=== PATIENT | male | born 1970 | race Caucasian/White ===

== ENCOUNTER 2020-09-18 05:43 | Outpatient (CLI) | payer OTHER ==
[~2020-09-18] VITALS: Ht 177.8 cm; Wt 113.7 kg
[2020-09-21] MEDS ORDERED: HYDR-3817 PO (11:58)
== END 2020-09-18 15:09 | disposition home or self-care (01) ==
LOC: PREOP 05:43
PROVIDERS: ATTEND Surgery
DX: Z01.818 Encounter for other preprocedural examination (principal)

== ENCOUNTER 2020-09-21 11:54 | Day surgery (SDC) | payer OTHER ==
[~2020-09-21] VITALS: Ht 177 cm; Wt 113.7 kg
[2020-09-21] VITALS (11 sets, daily range): BP systolic 116–134; BP diastolic 52–80
--- NOTE | 2020-09-21 11:57 | Progress Note-Pre Operative ---
Pre-Operative Progress Note H&P Reviewed The H&P was reviewed, patient examined and no changes noted. Date Seen by Provider: Sep 21, 2020 Time Seen by Provider: 11:45 Date H&P Reviewed: Sep 21, 2020 Time H&P Reviewed: 11:45 Pre-Operative Diagnosis: sx reducible left inguinal and umbilical hernia AMA MORENO MD Sep 21, 2020 11:57
[2020-09-21] MEDS ORDERED: HYDR-3817 PO (11:58)
--- NOTE | 2020-09-21 11:59 | Discharge Inst-Surgical ---
D/C Lap Instructions-JOSH New, Converted, or Re-Newed RX: RX on Chart Follow Up Appt in 2 weeks Activity as tolerated No driving for 24 hours No driving while on pain medications Incentive Spirometry use every 2 hours while awake Regular Diet Symptoms to Report: Fever over 101 degree F, Nausea/Vomiting Infection Signs and Symptoms to report: Increased redness, Foul odor of wound, Increased drainage Bathing instructions: May shower Operative Area Clean/Dry; Keep incision clean/dry If any problems/questions: Contact your physician or go to Emergency Room AMA MORENO MD Sep 21, 2020 11:59
[2020-09-21] MEDS ORDERED: ONDANSETRON 4 MG/2 ML (SDV) Z0FRAN IVP PRN ×2 (12:00→16:15)
[2020-09-21] MEDS ORDERED: ACETAMINOPHEN 325 MG TABLET PO PRN (12:00)
[2020-09-21] MEDS ORDERED: morphine INJ 10 MG/ML 1ML (SYR OR VIAL) IVP PRN ×2 (12:00)
[2020-09-21] MEDS ORDERED: oxyCODONE/APAP 5/325MG (PERCOCET 5) TABLET PO PRN (12:00)
[2020-09-21] MEDS ORDERED: fentaNYL INJ 100 MCG/2 ML AMP ONE ×2 (12:40→14:56)
[2020-09-21] MEDS ORDERED: LIDOCAINE PF 2% 5 ML (XYLOCAINE) VIAL ONE (12:41)
[2020-09-21] MEDS ORDERED: MIDAZOLAM 2 MG/2 ML (VERSED) VIAL ONE (12:41)
[2020-09-21] MEDS ORDERED: proPOfol 200 MG/20 ML (DIPRIVAN) VIAL IV ONE (12:42)
[2020-09-21] MEDS ORDERED: ONDANSETRON 4 MG/2 ML (SDV) Z0FRAN ONE (12:43)
[2020-09-21] MEDS ORDERED: SEVOFLURANE (ULTANE) 15 ML INHAL SOLN ONE ×6 (12:43→15:32)
[2020-09-21] MEDS ORDERED: ROCURONIUM 10 MG/ML 5 ML SYRINGE IV ONE (12:43)
[2020-09-21] MEDS ORDERED: GLYCOPYRROLATE 0.2 MG/ML (ROBINUL) 2 ML VIAL ONE (12:43)
[2020-09-21] MEDS ORDERED: NEOSTIGMINE 3 MG/3 ML VIAL ONE (12:43)
[2020-09-21] MEDS ORDERED: NAPR-1070 PO (12:45)
[2020-09-21] MEDS ORDERED: GABA-486 PO (12:45)
[2020-09-21] MEDS ORDERED: NF-VITD400 PO (12:45)
[2020-09-21] MEDS ORDERED: METF-397 PO (12:45)
[2020-09-21] MEDS ORDERED: LIRA3PEN SQ (12:45)
[2020-09-21] MEDS ORDERED: DULO20CA19 PO (12:45)
[2020-09-21] MEDS ORDERED: TRZ50T PO (12:45)
[2020-09-21] MEDS ORDERED: EMPA10TA PO (12:45)
[2020-09-21] MEDS ORDERED: CLINDAMYCIN 600 MG/50 ML IVPB 50 ML IV ONE (12:45)
[2020-09-21] MEDS ORDERED: SIMV5TAB22 PO (12:45)
[2020-09-21] MEDS: LACTATED RINGERS 1,000 ML IV PRN ×2 (12:57→14:40)
[2020-09-21 13:04] LABS: BASOPHILS # (AUTO) 0.1 10^3/uL (0.0-0.1); BASOPHILS % (AUTO) 1 % (0-10); EOSINOPHILS # (AUTO) 0.2 10^3/uL (0.0-0.3); EOSINOPHILS % (AUTO) 3 % (0-10); HEMATOCRIT 45 % (40-54); HEMOGLOBIN 15.6 g/dL (13.3-17.7); LYMPHOCYTES # (AUTO) 1.8 10^3/uL (1.0-4.0); LYMPHOCYTES % (AUTO) 34 % (12-44); MEAN CORPUSCULAR HEMOGLOBIN 30 pg (25-34); MEAN CORPUSCULAR HGB CONC 35 g/dL (32-36); MEAN CORPUSCULAR VOLUME 87 fL (80-99); MEAN PLATELET VOLUME 9.6 fL (9.0-12.2); MONOCYTES # (AUTO) 0.5 10^3/uL (0.0-1.0); MONOCYTES % (AUTO) 9 % (0-12); NEUTROPHILS # (AUTO) 2.8 10^3/uL (1.8-7.8); NEUTROPHILS % (AUTO) 53 % (42-75); PLATELET COUNT 208 10^3/uL (130-400); WHITE BLOOD COUNT 5.2 10^3/uL (4.3-11.0)
[2020-09-21] MEDS ORDERED: LIDOCAINE/EPI 1%-1:200,000 (XYLOCAINE) 10 ML VIAL ONE (14:15)
--- NOTE | 2020-09-21 15:59 | Progress Note-Post Operative ---
Post-Operative Progess Note Surgeon (s)/[place] Machine Operator (s) Surgeon AMA MORENO MD [place] Machine Operator: jai patricio GRADER PATROL Pre-Operative Diagnosis sx reducible left inguinal and ventral abd inc hernia Post-Operative Diagnosis left indirect inguinal hernia ventral abd inc hernia Procedure & Operative Findings Date of Procedure 09/21/20 Procedure Performed/Findings laparoscopic right inguinal hernia repair with mesh. open ventral abd incisional hernia repair with mesh. Anesthesia Type get Estimated Blood Loss Estimated blood loss (mL): minimal Specimens/Packing Specimens Removed none AMA MORENO MD Sep 21, 2020 15:59
[2020-09-21] MEDS ORDERED: HYDROmorphone 2 MG/ML VIAL (DILAUDID) IV ONE (16:15)
--- NOTE | 2020-09-21 16:50 | Anesthesia-General Post-Op ---
General Patient Condition Mental Status/LOC: Same as Preop Cardiovascular: Satisfactory Nausea/Vomiting: Absent Respiratory: Satisfactory Pain: Controlled Complications: Absent Post Op Complications Complications None Follow Up Care/Instructions Patient Instructions None needed. Anesthesia/Patient Condition Patient Condition Patient is doing well, no complaints, stable vital signs, no apparent adverse anesthesia problems. No complications reported per nursing. D/C home [facility] Criteria: Yes LAKESHIA PABLO CRNA Sep 21, 2020 16:50
--- NOTE | 2020-09-22 00:08 | OPERATIVE REPORT ---
DATE OF SERVICE: 09/21/2020 ATTENDING PRIMARY CARE PHYSICIAN: Jaycee Arredondo at [place], [place]. PREOPERATIVE DIAGNOSES: 1. Symptomatic reducible left inguinal hernia. 2. Symptomatic reducible recurrent ventral abdominal incisional hernia. POSTOPERATIVE DIAGNOSES: 1. Symptomatic reducible left inguinal hernia. 2. Symptomatic reducible recurrent ventral abdominal incisional hernia. PROCEDURE: Laparoscopic left inguinal hernia repair with mesh, open recurrent umbilical hernia repair with mesh. SURGEON: Ama Moreno MD FLOOR PERSON: Reddy De La Fuente APRN. ANESTHESIA: General endotracheal. ESTIMATED BLOOD LOSS: Minimal. FINDINGS: Left indirect inguinal hernia, ventral abdominal incisional hernia with nothing within the hernia sac. DISPOSITION: The patient tolerated the procedure well. INDICATIONS: The patient is a 50-year-old male referred over to us for pain in the left inguinal region as well as a recurrent bulge in the umbilical region. Approximately 2 years ago, he had what sounded to be an incarcerated umbilical hernia and underwent repair by primary technique. A few months later, he did notice a recurrent bulge, which grew larger in size and became painful. He also underwent a CT scan, which did show a left inguinal hernia, which was tender to palpation; however, reducible. He is otherwise eating well and having normal bowel movements. DESCRIPTION OF PROCEDURE: The patient was brought to the operating room, laid supine on the table. After adequate IV pain and sedative medications and general endotracheal intubation, the abdomen was prepped and draped in standard surgical fashion. A 0.5% Marcaine with epinephrine was used to anesthetize overlying skin in the infraumbilical rim and a skin incision made using a 15 blade. A sharp towel clamp was used to retract the abdominal wall anteriorly and a Veress needle inserted with low opening pressure of 0 mmHg. The abdomen was then insufflated to 15 mmHg. The Veress needle removed and a 10 mm XL trocar placed followed by a 10 mm 45-degree angle laparoscope visualizing the peritoneal cavity. A left indirect inguinal hernia was identified. There was no right inguinal hernia component. Under direct visualization, we then proceeded to place two bilateral 5 mm ports under direct visualization after the skin and peritoneal lining were anesthetized using 0.5% Marcaine with epinephrine and transverse skin incision made using a 15 blade. The peritoneal lining was then opened using electrocautery towards the conjoined tendon and inguinal ligament laterally and medially until we reached the Landon's ligament. We then proceeded with inferior dissection encompassing the hernia sac as well as the cord lipoma. The cord and its surrounding contents identified and spared throughout the process. A medium size polypropylene mesh was then placed into the defect and tacked to Landon's ligament medially with AbsorbaTack and the inguinal ligament laterally. The peritoneal lining was then placed over the mesh and a few absorbable tacks placed to hold this in place with visualization of good hemostasis. We then proceeded with repair of the ventral abdominal incisional hernia. The skin incision was extended laterally using a 15 blade. The hernia sac was identified and completely dissected out using electrocautery as well as blunt dissection. The hernia sac was then excised using electrocautery and a large 8 cm round polypropylene mesh was placed into the defect and sutured transfascially to the mesh in a concentric manner using interrupted 0 Prolene sutures. Good hemostasis was observed. The subcutaneous tissue was then reapproximated using 3-0 Vicryl interrupted sutures. Skin was closed using 4-0 Monocryl running subcuticular suture. Wounds were then cleaned and covered with Dermabond. The patient tolerated the procedure well. He will be instructed to do no heavy lifting or exertion for the next six weeks. and wear both scrotal support and abdominal binder for at least the next 2 weeks. Job ID: [id number] DocumentID: [id number] Dictated Date: 09/21/2020 15:47:24 Application Manager Date: 09/22/2020 00:07:29 Dictated By: AMA MORENO MD MTDD
== END 2020-09-21 18:30 ==
LOC: SDC 11:54
PROVIDERS: ATTEND Surgery
DX: K40.90 Unilateral inguinal hernia, without obstruction or gangrene, not specified as recurrent (principal); K43.2 Incisional hernia without obstruction or gangrene; E11.40 Type 2 diabetes mellitus with diabetic neuropathy, unspecified; G47.33 Obstructive sleep apnea (adult) (pediatric); E78.00 Pure hypercholesterolemia, unspecified; F32.9 Major depressive disorder, single episode, unspecified; M19.90 Unspecified osteoarthritis, unspecified site; Z79.84 Long term (current) use of oral hypoglycemic drugs; Z88.0 Allergy status to penicillin; Z87.891 Personal history of nicotine dependence
CPT/HCPCS: 36415; 82962; 85025; 87081

== ENCOUNTER 2021-12-04 04:16 | Emergency (ER) | payer OTHER ==
[~2021-12-04] VITALS: Ht 177.8 cm; Wt 113.0 kg
[~2021-12-04 04:16] MED LIST: DULO20CA19 PO; EMPA10TA PO; GABA-486 PO; HYDR-3817 PO; LIRA3PEN SQ; METF-397 PO; NAPR-1070 PO; NF-VITD400 PO; SIMV5TAB22 PO; TRZ50T PO
[2021-12-04] MEDS ORDERED: inSUlin (REGULAR) HUMAN 1 UNIT/0.01 ML (CHARGE PER UNIT) SC STA (04:40)
--- NOTE | 2021-12-04 04:40 | ED General ---
General Stated Complaint: CHEST PAIN HIGH BLOOD SUGAR History of Present Illness Date Seen by Provider: Dec 04, 2021 Time Seen by Provider: 04:35 Initial Comments 51-year-old male with PMH of DM2/HTN/anxiety, is here with complaints of chest pain, anxiety,and elevated blood sugar. Patient had a home blood sugar level of over 500 and so patient decided to come to the ER.Denies SOB, diarrhea, nausea a nd vomiting, dysuria, dizziness. Allergies and Home Medications Allergies Coded Allergies: Penicillins (Verified Allergy, Unknown, Anaphylaxis, 09/21/20) Patient Home Medication List Home Medication List Reviewed: Yes Duloxetine HCl (Duloxetine HCl) Unknown Strength Capsule.dr, Unknown Dose PO, (Reported) Entered as Reported by: CHINYERE DEAN on 09/21/20 1245 Empagliflozin (Jardiance) Unknown Strength Tablet, Unknown Dose PO, (Reported) Entered as Reported by: CHINYERE DEAN on 09/21/20 1245 Gabapentin (Gabapentin) Unknown Strength Capsule, Unknown Dose PO Q8H, (Reported) Entered as Reported by: CHINYERE DEAN on 09/21/20 1245 Hydrocodone/Acetaminophen (Hydrocodone-Acetamin 7.5-325) 1 Each Tablet, 1 EACH PO Q4H Prescribed by: AMA MORENO on 09/21/20 1158 Liraglutide (Saxenda) Unknown Strength Pen.injctr, Unknown Dose SQ, (Reported) Entered as Reported by: CHINYERE DEAN on 09/21/20 1245 Metformin HCl (Metformin HCl) Unknown Strength Tablet, Unknown Dose PO, (Reported) Entered as Reported by: CHINYERE DEAN on 09/21/20 1245 Naproxen Sodium (Anaprox Ds) Unknown Strength Tablet, Unknown Dose PO BID, (Reported) Entered as Reported by: CHINYERE DEAN on 09/21/20 1245 Simvastatin (Simvastatin) Unknown Strength Tablet, Unknown Dose PO, (Reported) Entered as Reported by: CHINYERE DEAN on 09/21/20 1245 Trazodone HCl (Trazodone HCl) Unknown Strength Tablet, Unknown Dose PO, (Reported) Entered as Reported by: CHINYERE DEAN on 09/21/20 1245 Vitamin D (Vitamin D3) Unknown Strength Tablet, Unknown Dose PO, (Reported) Entered as Reported by: CHINYERE DEAN on 09/21/20 6827 Review of Systems Review of Systems Constitutional: chills, malaise EENTM: no symptoms reported Respiratory: no symptoms reported Cardiovascular: chest pain Gastrointestinal: LUQ, abdominal pain Genitourinary: no symptoms reported Musculoskeletal: no symptoms reported Skin: no symptoms reported Psychiatric/Neurological: Anxiety Hematologic/Lymphatic: No Symptoms Reported Immunological/Allergic: no symptoms reported Past Joshwvd-Ckhiur-Pnsula Hx Seasonal Allergies Seasonal Allergies: No Past Medical History Surgeries: Yes (neck fusion, R biceps repair, umb hernia) Respiratory: No Cardiac: No Neurological: Yes (vitamin d deficiency) Neuropathy Genitourinary: No Gastrointestinal: Yes (incisional hernia, ) Musculoskeletal: Yes Degenerate Disk Disease Endocrine: Yes Diabetes, Non-Insulin dep HEENT: No Cancer: No Psychosocial: No Integumentary: No Blood Disorders: No Physical Exam Vital Signs Vital Signs - First Documented 12/04/21 04:20 Temp 36.4 Pulse 79 Resp 16 B/P (MAP) 141/87 (105) Pulse Ox 99 O2 Delivery Room Air Capillary Refill : Height, Weight, BMI Height: '" Weight: lbs. oz. kg; 36.29 BMI Method: General Appearance: Anxious, Mild Distress HEENT: PERRL/EOMI, TMs Normal, Normal ENT Inspection Neck: Full Range of Motion, Normal Inspection, Non Tender Respiratory: Chest Non Tender, Lungs Clear, Normal Breath Sounds, No Accessory Muscle Use Cardiovascular: Regular Rate, Rhythm, No Edema Gastrointestinal: Normal Bowel Sounds, Non Tender, Soft Neurologic/Psychiatric: Alert, Oriented x3, No Motor/Sensory Deficits, Normal Mood/Affect Skin: Normal Color, Warm/Dry Lymphatic: No Adenopathy (dry mucous membranes) Progress/Results/Core Measures Suspected Sepsis SIRS Temperature: Pulse: Respiratory Rate: Laboratory Tests 12/04/21 04:40: White Blood Count 5.3 Blood Pressure / Mean: Laboratory Tests 12/04/21 04:40: Creatinine 0.84, Platelet Count 239, Total Bilirubin 0.4 Results/Orders Lab Results Laboratory Tests Test 12/04/21 04:27 12/04/21 04:40 12/04/21 06:07 12/04/21 06:12 Range/Units Glucometer 454 *H 282 H 70-110 MG/DL White Blood Count 5.3 4.3-11.0 10^3/uL Red Blood Count 4.94 4.30-5.52 10^6/uL Hemoglobin 14.8 13.3-17.7 g/dL Hematocrit 42 40-54 % Mean Corpuscular Volume 85 80-99 fL Mean Corpuscular Hemoglobin 30 25-34 pg Mean Corpuscular Hemoglobin Concent 35 32-36 g/dL Red Cell Distribution Width 12.5 10.0-14.5 % Platelet Count 239 130-400 10^3/uL Mean Platelet Volume 9.9 9.0-12.2 fL Immature Granulocyte % (Auto) 1 % Neutrophils (%) (Auto) 54 42-75 % Lymphocytes (%) (Auto) 34 12-44 % Monocytes (%) (Auto) 9 0-12 % Eosinophils (%) (Auto) 2 0-10 % Basophils (%) (Auto) 1 0-10 % Neutrophils # (Auto) 2.9 1.8-7.8 10^3/uL Lymphocytes # (Auto) 1.8 1.0-4.0 10^3/uL Monocytes # (Auto) 0.5 0.0-1.0 10^3/uL Eosinophils # (Auto) 0.1 0.0-0.3 10^3/uL Basophils # (Auto) 0.1 0.0-0.1 10^3/uL Immature Granulocyte # (Auto) 0.0 0.0-0.1 10^3/uL Sodium Level 133 L 135-145 MMOL/L Potassium Level 4.4 3.6-5.0 MMOL/L Chloride Level 100 98-107 MMOL/L Carbon Dioxide Level 22 21-32 MMOL/L Anion Gap 11 5-14 MMOL/L Blood Urea Nitrogen 16 7-18 MG/DL Creatinine 0.84 0.60-1.30 MG/DL Estimat Glomerular Filtration Rate 104 BUN/Creatinine Ratio 19 Glucose Level 501 *H 70-105 MG/DL Calcium Level 9.7 8.5-10.1 MG/DL Corrected Calcium 9.5 8.5-10.1 MG/DL Magnesium Level 2.0 1.6-2.4 MG/DL Total Bilirubin 0.4 0.1-1.0 MG/DL Aspartate Amino Transf (AST/SGOT) 19 5-34 U/L Alanine Aminotransferase (ALT/SGPT) 27 0-55 U/L Alkaline Phosphatase 104 40-136 U/L Troponin I < 0.30 <0.30 NG/ML Total Protein 6.3 L 6.4-8.2 GM/DL Albumin 4.2 3.2-4.5 GM/DL Urine Color YELLOW Urine Clarity CLEAR Urine pH 6.0 5-9 Urine Specific [place] <=1.005 1.016-1.022 Urine Protein NEGATIVE NEGATIVE Urine Glucose (UA) 3+ H NEGATIVE Urine Ketones NEGATIVE NEGATIVE Urine Nitrite NEGATIVE NEGATIVE Urine Bilirubin NEGATIVE NEGATIVE Urine Urobilinogen 0.2 < = 1.0 MG/DL Urine Leukocyte Esterase NEGATIVE NEGATIVE Urine RBC (Auto) NEGATIVE NEGATIVE Urine RBC NONE /HPF Urine WBC RARE /HPF Urine Squamous Epithelial Cells RARE /HPF Urine Crystals NONE /LPF Urine Bacteria NEGATIVE /HPF Urine Casts NONE /LPF Urine Mucus NEGATIVE /LPF Urine Culture Indicated NO Urine Opiates Screen NEGATIVE NEGATIVE Urine Oxycodone Screen NEGATIVE NEGATIVE Urine Methadone Screen NEGATIVE NEGATIVE Urine Propoxyphene Screen NEGATIVE NEGATIVE Urine Barbiturates Screen NEGATIVE NEGATIVE Ur Tricyclic Antidepressants Screen NEGATIVE NEGATIVE Urine Phencyclidine Screen NEGATIVE NEGATIVE Urine Amphetamines Screen NEGATIVE NEGATIVE Urine Methamphetamines Screen NEGATIVE NEGATIVE Urine Benzodiazepines Screen NEGATIVE NEGATIVE Urine Cocaine Screen NEGATIVE NEGATIVE Urine Cannabinoids Screen POSITIVE H NEGATIVE My Orders Orders - KARO ANDERSON MD Insulin (Regular) Human (Novolin R (Per (12/04/21 04:40) Ed Iv/Invasive Line Start (12/04/21 04:48) Ns Iv 1000 Ml (Sodium Chloride 0.9%) (12/04/21 05:00) Ct Abdomen/Pelvis W (12/04/21 04:49) Alcohol (12/04/21 04:49) Cbc With Automated Diff (12/04/21 04:49) Comprehensive Metabolic Panel (12/04/21 04:49) Drug Screen Stat (Urine) (12/04/21 04:49) Magnesium (12/04/21 04:49) Ua Culture If Indicated (12/04/21 04:49) Probnp Fs (12/04/21 04:49) Troponin I Fs (12/04/21 04:49) Chest 1 View Ap/Pa Only (12/04/21 04:49) Ekg Tracing (12/04/21 04:49) Aspirin Chewable Tablet (Baby Aspirin Ch (12/04/21 05:00) Lipase (12/04/21 04:52) Abg Ph (12/04/21 05:18) Accucheck Q1hr Q1HR (12/04/21 05:18) Check All Urine For Ketones (12/04/21 05:21) Iohexol Injection (Omnipaque 350 Mg/Ml 1 (12/04/21 05:30) Received Contrast (Hold Metformin- Contr (12/04/21 05:30) Sodium Chloride Flush (Catheter Flush Sy (12/04/21 05:30) Ns (Ivpb) (Sodium Chloride 0.9% Ivpb Bag (12/04/21 05:30) Ns Iv 1000 Ml (Sodium Chloride 0.9%) (12/04/21 05:21) Accucheck Daily ONCE (12/04/21 06:43) Medications Given in ED Current Medications Medications Dose Ordered Sig/[place] Route Start Time Stop Time Status Last Admin Dose Admin Aspirin 324 mg ONCE ONCE PO 12/04/21 05:00 12/04/21 05:01 DC 12/04/21 05:02 324 MG Iohexol 100 ml ONCE ONCE IV 12/04/21 05:30 12/04/21 05:31 DC 12/04/21 05:54 100 ML Sodium Chloride 10 ml NEEDED PRN IV 12/04/21 05:30 12/04/21 05:54 10 ML Sodium Chloride 100 ml ONCE ONCE IV 12/04/21 05:30 12/04/21 05:31 DC 12/04/21 05:54 100 ML Vital Signs/I&O 12/04/21 04:20 Temp 36.4 Pulse 79 Resp 16 B/P (MAP) 141/87 (105) Pulse Ox 99 O2 Delivery Room Air Capillary Refill : Progress Note : Progress Note 1. HYPERGLYCEMIA/ LUQ ABDOMINAL PAIN/ MARIJUANA ABUSE - CXR unremarkable - CT ABDOMEN: normal - Labs unremarkable - Machine broken so unable to do a s. ETOH and VBG/ pH panel, and lipase level - s.ETOH - UA: no infection, negative ketones - UDS: marijuana positive - Regular insulin 5 units - NS IVF bolus and then continuos - Blood sugar went from 500 to 282 to 277 -The patient was seen in the ED, and treated appropriately to presentation at a specific point in time. Patient is informed that there is a possibility that disease and illness can evolve and change in acuity rapidly or slowly after patient is discharged from the ER. Precautionary advice given to the patient for immediate return to ER if symptoms worsen or do not resolve, and to seek emergency care sooner rather than later. Pt also advised on the importance of PCP follow up and compliance with management and follow up plan with PCP and/or specialist, as this is part of the management plan. Pt verbally expressed understanding. 2. CHEST PAIN: ACS RULE OUT - Troponin - EKG: non-ischemic - ASA 324 mg STAT ECG Initial ECG Impression Date: Dec 04, 2021 Initial ECG Impression Time: 04:24 Initial ECG Rate: 76 Initial ECG Rhythm: Normal Sinus Initial ECG Intervals: Normal Initial ECG Impression: Normal Diagnostic Imaging Diagonstic Imaging: Xray, CT Plain Films/CT/US/NM/MRI: chest, abdomen Comments [facility] [place] [place], [place] NAME: [facility] REC#: [id number] PT STATUS: REG ER : 1970 PHYSICIAN: KARO ANDERSON MD ADMIT DATE: 12/04/21/ER FS Draft Date of Exam:12/04/21 CT ABDOMEN/PELVIS W EXAMINATION: CT abdomen and pelvis with intravenous contrast. TECHNIQUE: Multiple contiguous axial images were obtained through the abdomen and pelvis after the uneventful administration of intravenous contrast. All CT scans use one or more of the following dose optimizing techniques: automated exposure control, MA and/or KvP adjustment based on patient size and exam type or iterative reconstruction. HISTORY: Left upper quadrant pain. Epigastric pain. COMPARISON: None available. FINDINGS: The heart is unremarkable. The included lung bases are clear. The liver, spleen, pancreas, adrenal glands, and kidneys have a normal appearance. The gallbladder is nondistended. The portal vein is patent. Mildly prominent retroperitoneal lymph nodes are noted. The bowel loops are nondilated. The appendix is visualized in the right lower quadrant and has a normal appearance. There is no free fluid or free air. No acute osseous abnormalities. The urinary bladder is mildly distended. Nonspecific mildly prominent lymph node is visualized along the right external iliac chain measuring 0.9 cm. IMPRESSION: 1. Nonspecific mildly prominent retroperitoneal and right inguinal lymph nodes, likely reactive. 2. No bowel obstruction. No free fluid or free air in the abdomen and pelvis. Dictated on workstation # [id number] Dict: 12/04/21 0607 Trans: 12/04/21 0611 [facility] [id number] Interpreted by: KARI CALDERON DO Electronically signed by: [facility] [place], [place] NAME: [facility] REC#: [id number] PT STATUS: REG ER : 1970 PHYSICIAN: KARO ANDERSON MD ADMIT DATE: 12/04/21/ER FS Signed Date of Exam:12/04/21 CHEST 1 VIEW AP/PA ONLY EXAMINATION: Chest 1 view HISTORY: Chest pain. COMPARISON: None available. FINDINGS: The lung volumes are normal. No focal consolidation is seen. No large pleural effusion or pneumothorax is seen. The cardiomediastinal silhouette is normal in size and contour. No acute osseous abnormality is seen. IMPRESSION: 1. No acute pleuroparenchymal process. Dictated by: Dictated on workstation # [id number] Dict: 12/04/21 0549 Trans: 12/04/21 0554 [id number] Interpreted by: KARI CALDERON DO Electronically signed by: KARI CALDERON DO 12/04/21 0554 Departure Impression Primary Impression: Hyperglycemia without ketosis Additional Impressions: Ruled out for myocardial infarction Marijuana abuse Disposition: 01 HOME, SELF-CARE Condition: Improved Departure-Patient Inst. Referrals: NO,LOCAL PHYSICIAN (PCP) Primary Care Physician Patient Instructions: Marijuana Use and Addiction, Heart Healthy Diet, How to Prevent High Blood Sugar Emergencies in Diabetes, High Blood Sugar, Adult ED Add. Discharge Instructions: - Heart healthy diet advised - Adequate hydration - Follow up with PCP in the next 3 to 7 days - Return to ER if symptoms worsen - Stop using marijuana KARO ANDERSON MD Dec 04, 2021 04:40
[2021-12-04] MEDS ORDERED: ASPIRIN 81 MG CHEW (CHILDREN'S ASA) PO ONE (05:00)
[2021-12-04] MEDS ORDERED: NS IV 1000 ML 1,000 ML IV SCH (05:00)
[2021-12-04 05:02] LABS: BASOPHILS # (AUTO) 0.1 10^3/uL (0.0-0.1); BASOPHILS % (AUTO) 1 % (0-10); EOSINOPHILS # (AUTO) 0.1 10^3/uL (0.0-0.3); EOSINOPHILS % (AUTO) 2 % (0-10); HEMATOCRIT 42 % (40-54); HEMOGLOBIN 14.8 g/dL (13.3-17.7); LYMPHOCYTES # (AUTO) 1.8 10^3/uL (1.0-4.0); LYMPHOCYTES % (AUTO) 34 % (12-44); MEAN CORPUSCULAR HEMOGLOBIN 30 pg (25-34); MEAN CORPUSCULAR HGB CONC 35 g/dL (32-36); MEAN CORPUSCULAR VOLUME 85 fL (80-99); MEAN PLATELET VOLUME 9.9 fL (9.0-12.2); MONOCYTES # (AUTO) 0.5 10^3/uL (0.0-1.0); MONOCYTES % (AUTO) 9 % (0-12); NEUTROPHILS # (AUTO) 2.9 10^3/uL (1.8-7.8); NEUTROPHILS % (AUTO) 54 % (42-75); PLATELET COUNT 239 10^3/uL (130-400); WHITE BLOOD COUNT 5.3 10^3/uL (4.3-11.0)
[2021-12-04] MEDS ORDERED: NS IV 1000 ML 1,000 ML IV STA (05:21)
[2021-12-04 05:28] LABS: BUN/CREATININE RATIO 19; CARBON DIOXIDE 22 MMOL/L (21-32); CHLORIDE 100 MMOL/L (98-107); CREATININE SERUM 0.84 MG/DL (0.60-1.30); GFR ESTIMATED 104; POTASSIUM 4.4 MMOL/L (3.6-5.0); SODIUM 133 MMOL/L (135-145)
[2021-12-04 05:30] LABS: CALCIUM 9.7 MG/DL (8.5-10.1); GLUCOSE 501 MG/DL (70-105)
[2021-12-04] MEDS ORDERED: NS 100 ML (IVPB) BAG IV ONE (05:30)
[2021-12-04] MEDS ORDERED: CATHETER FLUSH 10 ML SYR IV PRN (05:30)
[2021-12-04] MEDS ORDERED: IOHEXOL 350 MG/ML 100 ML (OMNIPAQUE 350) VIAL IV ONE (05:30)
[2021-12-04] MEDS ORDERED: HOLD METFORMIN - RECEIVED CONTRAST 20 ML VIAL IV SCH (05:30)
[2021-12-04 05:31] LABS: ALANINE AMINOTRANSFERASE 27 U/L (0-55); ALBUMIN 4.2 GM/DL (3.2-4.5); ALKALINE PHOSPHATASE 104 U/L (40-136); BILIRUBIN,TOTAL 0.4 MG/DL (0.1-1.0); TOTAL PROTEIN 6.3 GM/DL (6.4-8.2)
--- NOTE | 2021-12-04 05:53 | Diagnostic Imaging Report ---
EXAMINATION: Chest 1 view HISTORY: Chest pain. COMPARISON: None available. FINDINGS: The lung volumes are normal. No focal consolidation is seen. No large pleural effusion or pneumothorax is seen. The cardiomediastinal silhouette is normal in size and contour. No acute osseous abnormality is seen. IMPRESSION: 1. No acute pleuroparenchymal process. Dictated by: Dictated on workstation # [id number]
--- NOTE | 2021-12-04 06:12 | Diagnostic Imaging Report ---
EXAMINATION: CT abdomen and pelvis with intravenous contrast. TECHNIQUE: Multiple contiguous axial images were obtained through the abdomen and pelvis after the uneventful administration of intravenous contrast. All CT scans use one or more of the following dose optimizing techniques: automated exposure control, MA and/or KvP adjustment based on patient size and exam type or iterative reconstruction. HISTORY: Left upper quadrant pain. Epigastric pain. COMPARISON: None available. FINDINGS: The heart is unremarkable. The included lung bases are clear. The liver, spleen, pancreas, adrenal glands, and kidneys have a normal appearance. The gallbladder is nondistended. The portal vein is patent. Mildly prominent retroperitoneal lymph nodes are noted. The bowel loops are nondilated. The appendix is visualized in the right lower quadrant and has a normal appearance. There is no free fluid or free air. No acute osseous abnormalities. The urinary bladder is mildly distended. Nonspecific mildly prominent lymph node is visualized along the right external iliac chain measuring 0.9 cm. IMPRESSION: 1. Nonspecific mildly prominent retroperitoneal and right inguinal lymph nodes, likely reactive. 2. No bowel obstruction. No free fluid or free air in the abdomen and pelvis. Dictated by: Dictated on workstation # [id number]
[2021-12-04 06:16] LABS: BILIRUBIN,URINE NEGATIVE (NEGATIVE); CLARITY,URINE CLEAR; COLOR,URINE YELLOW; GLUCOSE, URINE (UA) 3+ (NEGATIVE); KETONES,URINE NEGATIVE (NEGATIVE); LEUKOCYTE ESTERASE ,URINE NEGATIVE (NEGATIVE); NITRITE,URINE NEGATIVE (NEGATIVE); PROTEIN,URINE NEGATIVE (NEGATIVE)
[2021-12-04 06:23] LABS: BACTERIA,URINE NEGATIVE /HPF; SQUAMOUS EPITHELIAL CELL,UR RARE /HPF; WBC,URINE RARE /HPF
[2021-12-04 06:26] LABS: AMPHETAMINE SCREEN, URINE NEGATIVE (NEGATIVE); BARBITURATE SCREEN URINE NEGATIVE (NEGATIVE); BENZODIAZEPINES SCREEN URINE NEGATIVE (NEGATIVE); CANNABINOID SCREEN, URINE POSITIVE (NEGATIVE); COCAINE SCREEN URINE NEGATIVE (NEGATIVE); METHADONE STAT NEGATIVE (NEGATIVE); OPIATE SCREEN URINE NEGATIVE (NEGATIVE); OXYCODONE STAT NEGATIVE (NEGATIVE); PROPOXYPHENE STAT NEGATIVE (NEGATIVE); TRICYCLIC ANTIDEPRESSANTS SCRE NEGATIVE (NEGATIVE)
[2021-12-04 06:55] VITALS: BP 140/75
== END 2021-12-04 06:55 | disposition home or self-care (01) ==
LOC: EDUNIT# 04:16 → ER FS 04:19
DX: E11.65 Type 2 diabetes mellitus with hyperglycemia (principal); E11.40 Type 2 diabetes mellitus with diabetic neuropathy, unspecified; F12.10 Cannabis abuse, uncomplicated; Z79.4 Long term (current) use of insulin
CPT/HCPCS: 36415; 71045; 74177; 80053; 80306; 80320; 81000; 82947; 83690; 83735; 83880; 84484; 85025; 93005

== ENCOUNTER 2022-01-04 21:22 | Emergency (ER) | payer OTHER ==
[2022-01-04] MEDS ORDERED: CEPHALEXIN 250 MG (KEFLEX) CAP PO STA (22:00)
--- NOTE | 2022-01-04 22:08 | ED Upper Extremity ---
General Chief Complaint: Upper Extremity Stated Complaint: L ARM PAIN Nursing Triage Note: Pt presents with a small laceration to his left hand and states that air from an air compressor blew into the cut and that he can feel air under the skin in his forearm Source: patient History of Present Illness Date Seen by Provider: Jan 04, 2022 Time Seen by Provider: 21:32 Initial Comments 51-year-old male presenting with complaints of tingling and pain to his left forearm and hand. He states he was trying to use an air compressor to blow debris off of a cut on his left hand by his thumb. Initially he was just using low pressure but then he accidentally hit full pressure on air compressor and had a regular into his forearm through the cut. He was able to milk out some of the air initially. He was starting to have some tingling in his fingers and was concerned that the air may have been dirty and he might have infection. He has full range of motion of his fingers hand and wrist. Has normal pulses and capillary refill. He thinks his last tetanus shot was within the last 7 years more than 5 years. Onset: just prior to arrival Severity: moderate Pain/Injury Location: left forearm, left wrist, left hand Method of Injury: other (Accidental subcutaneous air injection through a cut when using an air compressor) Allergies and Home Medications Allergies Coded Allergies: Penicillins (Verified Allergy, Unknown, Anaphylaxis, 09/21/20) Patient Home Medication List Home Medication List Reviewed: Yes Cephalexin (Cephalexin) 500 Mg Capsule, 500 MG PO TID Prescribed by: IGNACIO ROMERO on 01/04/22 2211 Duloxetine HCl (Duloxetine HCl) Unknown Strength Capsule., Unknown Dose PO, (Reported) Entered as Reported by: CHINYERE DEAN on 09/21/20 1245 Empagliflozin (Jardiance) Unknown Strength Tablet, Unknown Dose PO, (Reported) Entered as Reported by: CHINYERE DEAN on 09/21/20 1245 Gabapentin (Gabapentin) Unknown Strength Capsule, Unknown Dose PO Q8H, (Reported) Entered as Reported by: CHINYERE DEAN on 09/21/20 1245 Hydrocodone/Acetaminophen (Hydrocodone-Acetamin 7.5-325) 1 Each Tablet, 1 EACH PO Q4H Prescribed by: AMA MORENO on 09/21/20 1158 Liraglutide (Saxenda) Unknown Strength Pen.injctr, Unknown Dose SQ, (Reported) Entered as Reported by: CHINYERE DEAN on 09/21/20 1245 Metformin HCl (Metformin HCl) Unknown Strength Tablet, Unknown Dose PO, (Reported) Entered as Reported by: CHINYERE DEAN on 09/21/20 1245 Naproxen Sodium (Anaprox Ds) Unknown Strength Tablet, Unknown Dose PO BID, (Reported) Entered as Reported by: CHINYERE DEAN on 09/21/20 1245 Simvastatin (Simvastatin) Unknown Strength Tablet, Unknown Dose PO, (Reported) Entered as Reported by: CHINYERE DEAN on 09/21/20 1245 Trazodone HCl (Trazodone HCl) Unknown Strength Tablet, Unknown Dose PO, (Reported) Entered as Reported by: CHINYREE DEAN on 09/21/20 1245 Vitamin D (Vitamin D3) Unknown Strength Tablet, Unknown Dose PO, (Reported) Entered as Reported by: CHINYERE DEAN on 09/21/20 1245 Review of Systems Constitutional: No chills, No fever EENTM: no symptoms reported Respiratory: no symptoms reported Cardiovascular: no symptoms reported Gastrointestinal: no symptoms reported Genitourinary: no symptoms reported Musculoskeletal: see HPI Skin: see HPI Psychiatric/Neurological: Anxiety (Worried that he was going to get a bolus of air in his bloodstream and it might cause his heart to stop or cause a stroke) Past Tpbvisr-Xqamak-Fkdyxy Hx Immunizations Up To Date First/Initial COVID19 Vaccinat: unvaccinated Seasonal Allergies Seasonal Allergies: No Past Medical History Surgery/Hospitalization HX: DM Type II, Diabetes, Neuropathy, Depression, Cervical spine fused 4 levels, R shoulder surgery, R knee arthroscopy x2, Umbilical hernia, Hepatitis vs Fatty Liver? Surgeries: Yes (neck fusion, R biceps repair, umb hernia) Respiratory: No Cardiac: No Neurological: Yes (vitamin d deficiency) Neuropathy Genitourinary: No Gastrointestinal: Yes (incisional hernia, ) Musculoskeletal: Yes Degenerate Disk Disease Endocrine: Yes Diabetes, Non-Insulin dep HEENT: No Cancer: No Psychosocial: No Integumentary: No Blood Disorders: No Physical Exam Vital Signs Vital Signs - First Documented 01/04/22 21:28 Pulse 104 Resp 18 B/P (MAP) 179/91 (120) Pulse Ox 99 O2 Delivery Room Air Capillary Refill : Less Than 3 Seconds Height, Weight, BMI Height: '" Weight: lbs. oz. kg; 35.00 BMI Method: General Appearance: WD/WN, no apparent distress Cardiovascular: normal peripheral pulses Elbow/Forearm: normal ROM, swelling (Mild swelling to his forearm and wrist and hand on the left side. There is subcutaneous air causing some crepitus. He has full range of motion and normal pulses and capillary refill. He is intact to light touch on his hands and fingers.) Neurologic/Tendon: normal sensation (Intact to light touch), normal motor functions, normal tendon functions Neurologic/Psychiatric: alert, oriented x 3 Skin: warm/dry, other (Abrasions to the left hand along his thumb and wrist) Progress/Results/Core Measures Results/Orders My Orders Orders - IGNACIO ROMERO MD Cephalexin Capsule (Keflex Capsule) (01/04/22 22:00) Forearm 2 View Left (01/04/22 22:00) Vital Signs/I&O 01/04/22 01/04/22 21:28 22:14 Pulse 104 104 Resp 18 18 B/P (MAP) 179/91 (120) 179/91 Pulse Ox 99 99 O2 Delivery Room Air Room Air Blood Pressure Mean: 120 Progress Progress Note #1: Progress Note Order Keflex to help cover for potential skin infection. X-rays to obtain the amount of air in the subcutaneous tissue and for comparison if he has worsening problems. Encouraged to get a tetanus booster but patient stated he would wait and go through the [place] [facility] to get that. Advised he had up to 72 hours after an injury to update his tetanus. Progress Note #2: Progress Note X-rays demonstrate subcutaneous involvement not seen in her in the deeper tissue and muscles. Counseled again on management at home as well as follow-up and return precautions. Reviewed findings of compartment syndrome and gave a handout about that so he knew what to watch for if he was having worsening symptoms. Advised if this develops or he was concerned for it he would need to go to the hospital with orthopedics so they could check pressure in his extremity. Diagnostic Imaging Diagonstic Imaging: Xray Plain Films/CT/US/NM/MRI: forearm Comments [facility] [place], [place] NAME: KATRIN GRIFFITH [facility] REC#: [id number] PT STATUS: DEP ER : 1970 PHYSICIAN: IGNACIO ROMERO MD ADMIT DATE: 01/04/22/ER FS Signed Date of Exam:01/04/22 FOREARM 2 VIEW LEFT INDICATION: Laceration with pneumatic injury. FINDINGS: Dissecting soft tissue gas about the forearm extends into the radial aspect of the visualized wrist and hand. No retained opaque foreign body no fracture or dislocation. IMPRESSION: No bony injury or opaque foreign body. Dissecting gas extends into the radial margin of the wrist and hand and proximally to the level of the elbow within the subcutaneous fat. No appreciable joint gas. Dictated by: Dictated on workstation # [id number] Dict: 01/04/222209 Trans: 01/04/222225 PJE [id number] Interpreted by: MODE MCDONOUGH Electronically signed by: MODE MCDONOUGH 01/04/222225 Reviewed: Reviewed by Me Departure Impression Primary Impression: Subcutaneous air Qualified Codes: T79.7XXA - Traumatic subcutaneous emphysema, initial encounter Additional Impression: Abrasion of left hand, initial encounter Disposition: HOME, SELF-CARE Condition: Stable Departure-Patient Inst. Decision time for Depature: 22:07 Referrals: RIP PARIKH (PCP/Family) Primary Care Physician Patient Instructions: Abrasions ED, Acute Compartment Syndrome (DC), Wound Care ED Add. Discharge Instructions: Keep abrasions clean with soap and water. May apply antibiotic ointment once or twice a day to help prevent infection. Take the full course of antibiotics to help treat for potential infection from the abrasions. You may try applying heating pad or warm heat to the forearm to help the body reabsorb the air. If you have more severe pain or lose sensation to your hand and fingers you should go immediately to [facility] in [place] or a hospital that has orthopedics available to check the pressure in your arm and make sure that you are not having compartment syndrome were the blood vessels and nerves are having too much pressure on them and causing damage All discharge instructions reviewed with patient and/or family. Voiced understanding. Scripts Cephalexin (Cephalexin) 500 Mg Capsule 500 MG PO TID for skin abrasion for 5 Days, #15 CAP 0 Refills Prov: IGNACIO ROMERO MD 01/04/22 IGNACIO ROMERO MD Jan 04, 2022 22:08
[2022-01-04] MEDS ORDERED: CEPH500C PO (22:11)
[2022-01-04 22:14] VITALS: BP 179/91
--- NOTE | 2022-01-04 22:14 | Diagnostic Imaging Report ---
INDICATION: Laceration with pneumatic injury. FINDINGS: Dissecting soft tissue gas about the forearm extends into the radial aspect of the visualized wrist and hand. No retained opaque foreign body no fracture or dislocation. IMPRESSION: No bony injury or opaque foreign body. Dissecting gas extends into the radial margin of the wrist and hand and proximally to the level of the elbow within the subcutaneous fat. No appreciable joint gas. Dictated by: Dictated on workstation # [id number]
== END 2022-01-04 22:14 | disposition home or self-care (01) ==
LOC: EDUNIT# 21:22 → ER FS 21:23
DX: S60.512A Abrasion of left hand, initial encounter (principal); T79.7XXA Traumatic subcutaneous emphysema, initial encounter; Z28.310 Unvaccinated for COVID-19; W26.8XXA Contact with other sharp object(s), not elsewhere classified, initial encounter

== ENCOUNTER 2022-05-01 05:37 | Outpatient (CLI) | payer OTHER ==
[~2022-05-01] VITALS: Ht 177.8 cm; Wt 113.4 kg
[~2022-05-01 05:37] MED LIST changes: +CEPH500C PO
[2022-05-01] MEDS ORDERED: DULO60CA59 PO (11:04)
[2022-05-01] MEDS ORDERED: NAPR-915 PO (11:04)
[2022-05-01] MEDS ORDERED: SIMV80TA21 PO (11:04)
[2022-05-01] MEDS ORDERED: METF-397 PO (11:04)
[2022-05-01] MEDS ORDERED: INSU100V6 SQ (11:04)
[2022-05-01] MEDS ORDERED: GABA-490 PO (11:04)
[2022-05-01] MEDS ORDERED: TRZ50T PO (11:04)
== END 2022-05-01 11:08 | disposition home or self-care (01) ==
LOC: PREOP 05:37
PROVIDERS: ATTEND Surgery
DX: Z01.818 Encounter for other preprocedural examination (principal)

== ENCOUNTER 2022-05-14 06:16 | Day surgery (SDC) | payer OTHER ==
[~2022-05-14] VITALS: Ht 177.8 cm; Wt 113.4 kg
[~2022-05-14 06:16] MED LIST changes: +DULO60CA59 PO; +GABA-490 PO; +INSU100V6 SQ; +NAPR-915 PO; +SIMV80TA21 PO
[2022-05-14] MEDS ORDERED: PROPOFOL INJECTION 50 ML IV ONE ×2 (07:07→08:22)
[2022-05-14] MEDS ORDERED: MIDAZOLAM 2 MG/2 ML (VERSED) VIAL ONE (07:07)
[2022-05-14] MEDS ORDERED: LACTATED RINGERS 1,000 ML IV STA (07:12)
[2022-05-14] MEDS ORDERED: HURRICAINE EXT TUBE (BENZOCAINE) XX PRN (07:15)
[2022-05-14 07:20] VITALS: BP 127/88
[2022-05-14] MEDS ORDERED: PANT40TA2 PO (08:34)
[2022-05-14] MEDS ORDERED: SUCR1TAB36 PO (08:34)
[2022-05-14 08:35] VITALS: BP 102/56
--- NOTE | 2022-05-14 08:35 | Discharge Inst-Simple/Standard ---
Discharge Inst-Standard Patient Instructions/Follow Up Plan of Care/Instructions/FU: f/u with Dr. Goldberg in 2 weeks Activity as Tolerated: Yes Discharge Diet: No Restrictions, Regular Diet NAOMY GOLDBERG DO May 14, 2022 08:35
[2022-05-14 08:40] VITALS: BP 105/57
[2022-05-14 08:45] VITALS: BP 110/55
[2022-05-14 09:15] VITALS: BP 110/55
--- NOTE | 2022-05-14 14:52 | Anesthesia-General Post-Op ---
MAC Patient Condition Mental Status/LOC: Same as Preop Cardiovascular: Satisfactory Nausea/Vomiting: Absent Respiratory: Satisfactory Pain: Controlled Complications: Absent Post Op Complications Complications None Follow Up Care/Instructions Patient Instructions None needed. Anesthesiology Discharge Order Discharge Order Patient is doing well, no complaints, stable vital signs, no apparent adverse anesthesia problems. No complications reported per nursing. MYAH FELDMAN CRNA May 14, 2022 14:52
--- NOTE | 2022-05-14 17:24 | OPERATIVE REPORT ---
DATE OF SERVICE: 05/14/2022 PREOPERATIVE DIAGNOSIS: Epigastric abdominal pain, history of colon polyps. POSTOPERATIVE DIAGNOSES: Gastritis and rectal polyp. PROCEDURES PERFORMED: EGD with biopsies, colonoscopy with hot polypectomy x1. SURGEON: Naomy Goldberg DO. ANESTHESIA: Per [employer]ER. ESTIMATED BLOOD LOSS: None. COMPLICATIONS: None. INDICATIONS FOR PROCEDURE: The patient is a 51-year-old male with epigastric abdominal pain and a history of polyps. He understands the risks and benefits of the procedure and wishes to proceed. Consent was signed in the chart. DESCRIPTION OF PROCEDURE: The patient was taken to the endoscopy suite and placed in the left lateral recumbent position. A timeout was performed. The scope was advanced down the esophagus, stomach and the duodenum without difficulty. No polyps, masses or ulcerations in the duodenum. Very minimal erythema in the first portion of the duodenum. Scope was slowly retracted back in the stomach, where it was further insufflated. Significant inflammation and mucosal thickening. Biopsies of the antrum and body were obtained. Scope was retroflexed noting no other pathology. Scope was returned to its normal position and slowly withdrawn in the distal esophagus. No polyps, masses or ulcerations. Biopsy of the GE junction was obtained. Scope was slowly retracted back until completely removed, noting no other pathology. Digital rectal exam was performed. No palpable polyps, masses or ulcerations. Scope was inserted into the rectum and advanced all the way to the cecum with minimal difficulty. Prep was adequate with irrigation and suction. Scope was slowly retracted back. No polyps, masses or ulcerations in the cecum, ascending, transverse, descending and sigmoid colon. Once the rectum, a small polyp was present, which hot biopsy polypectomy was performed. The scope was continouosly and slowly retracted back until the end. The scope was then reinserted and retroflexed noting no other pathology. Scope was returned to its normal position and slowly withdrawn until completely removed. The patient tolerated the procedure well without any complications and taken to recovery room in stable condition. RECOMMENDATIONS: The patient will stop naproxen and start on Protonix 40 mg daily and Carafate 1 gram four times a day. Would stop the naproxen. We will need a repeat colonoscopy in 5 years due to history of polyps. Any problems before that be seen at that time. The patient will follow up in the office in two weeks to discuss pathology results. Job ID: [id number] DocumentID: [id number] Dictated Date: 05/14/2022 08:36:49 Dumper [employer] System Date: 05/14/2022 17:22:00 Dictated By: NAOMY GOLDBERG DO
== END 2022-05-14 09:14 | disposition home or self-care (01) ==
LOC: ENDO 06:16
PROVIDERS: ATTEND Surgery
DX: Z12.11 Encounter for screening for malignant neoplasm of colon (principal); K29.50 Unspecified chronic gastritis without bleeding; B96.81 Helicobacter pylori [H. pylori] as the cause of diseases classified elsewhere; K62.1 Rectal polyp; Z28.310 Unvaccinated for COVID-19; Z87.891 Personal history of nicotine dependence; E66.01 Morbid (severe) obesity due to excess calories; Z68.36 Body mass index [BMI] 36.0-36.9, adult
CPT/HCPCS: 88305; 88342

== ENCOUNTER 2022-09-19 15:08 | Emergency (ER) | payer OTHER ==
[~2022-09-19] VITALS: Ht 177.8 cm; Wt 113.3 kg
[~2022-09-19 15:08] MED LIST changes: +PANT40TA2 PO; +SUCR1TAB36 PO
--- NOTE | 2022-09-19 15:20 | ED Cough/URI ---
General Chief Complaint: Cough/Cold/Flu Symptoms Stated Complaint: CHEST PAIN, SOA, COUGH, CONGESTION Source: patient Exam Limitations: no limitations History of Present Illness Date Seen by Provider: Sep 19, 2022 Time Seen by Provider: 15:10 Initial Comments 52-year-old male presents to the emergency department today for cough productive of greenish sputum. Symptoms present for about 7 days. She had an upper respiratory, sinus issue at the onset of his symptoms. That seems to have resolved but his cough has persisted. He said he was feverish earlier in the week with a Tmax of 100 taken orally. He has been using lozenges with even increasing his blood sugar and he is diabetic. He denies chest pain outside of that that he gets with significant coughing fits. He states he passed out once from coughing so much. All other systems reviewed and negative except documented per HPI. Voice recognition software was used to help create this chart Allergies and Home Medications Allergies Coded Allergies: Penicillins (Verified Allergy, Unknown, Anaphylaxis, 09/21/20) Patient Home Medication List Home Medication List Reviewed: Yes Duloxetine HCl (Duloxetine HCl) 60 Mg Capsule., 60 MG PO DAILY, (Reported) Entered as Reported by: SANTIAGO FRAZIER on 05/01/221103 Gabapentin (Gabapentin) 400 Mg Capsule, 300 MG PO TID, (Reported) Entered as Reported by: SANTIAGO FRAZIER on 05/01/221103 Insulin Glargine,Hum.rec.anlog (Lantus) 100 Unit/Ml Vial, 10 UNIT SQ DAILY, (Reported) Entered as Reported by: SANTIAGO FRAZIER on 05/01/221103 Metformin HCl (Metformin HCl) 500 Mg Tablet, 500 MG PO BID, (Reported) Entered as Reported by: SANTIAGO FRAZIER on 05/01/221103 Pantoprazole Sodium (Protonix) 40 Mg Tablet.dr, 40 MG PO DAILY Prescribed by: NAOMY DOYLE on 05/14/22833 Simvastatin (Simvastatin) 80 Mg Tablet, 80 MG PO DAILY, (Reported) Entered as Reported by: SANTIAGO FRAZIER on 05/01/221103 Sucralfate (Carafate) 1 Gram Tablet, 1 GM PO QID Prescribed by: NAOMY DOYLE on 05/14/22833 Trazodone HCl (Trazodone HCl) 50 Mg Tablet, 50 MG PO DAILY, (Reported) Entered as Reported by: SANTIAGO FRAZIER on 05/01/22 1104 Review of Systems Review of Systems Constitutional: see HPI Past Gpmnjas-Avaoaf-Bcrqse Hx Patient Social History Tobacco Use?: Yes Use of E-Cig and/or Vaping dev: No Substance use?: No Alcohol Use?: No Immunizations Up To Date Tetanus Booster (TDap): Unknown First/Initial COVID19 Vaccinat: unvaccinated Second COVID19 Vaccination Krunal: unvaccinated Third COVID19 Vaccination Date: unvaccinated Seasonal Allergies Seasonal Allergies: No Past Medical History Surgery/Hospitalization HX: DM Type II, Diabetes, Neuropathy, Depression, Cervical spine fused 4 levels, R shoulder surgery, R knee arthroscopy x2, Umbilical hernia, Hepatitis vs Fatty Liver? Surgeries: Yes (neck fusion, R biceps repair, umb hernia) Respiratory: No Cardiac: No Neurological: Yes (vitamin d deficiency) Neuropathy Genitourinary: No Gastrointestinal: Yes (incisional hernia, ) Musculoskeletal: Yes Degenerate Disk Disease Endocrine: Yes Diabetes, Non-Insulin dep HEENT: No Cancer: No Psychosocial: No Integumentary: No Blood Disorders: No Family Medical History Reviewed Nursing Family Hx No Pertinent Family Hx Physical Exam Vital Signs - First Documented 09/19/22 15:11 Temp 37.0 Pulse 97 Resp 20 B/P (MAP) 122/92 (102) Capillary Refill : Height: '" Weight: lbs. oz. kg; 35.87 BMI Method: General Appearance: WD/WN, no apparent distress HEENT: PERRL/EOMI, normal ENT inspection, TMs normal, pharynx normal Neck: normal inspection Respiratory: chest non-tender, lungs clear, normal breath sounds, no respiratory distress, no accessory muscle use Cardiovascular: regular rate, rhythm, no murmur Gastrointestinal: normal bowel sounds, non tender, soft, no organomegaly Neurologic/Psychiatric: alert, normal mood/affect, oriented x 3 Skin: normal color, warm/dry Progress/Results/Core Measures Suspected Sepsis SIRS Temperature: Pulse: Respiratory Rate: Blood Pressure / Mean: Results/Orders My Orders Orders - SEPIDEH TAVAREZ DO Chest Pa/Lat (2 View) (09/19/22 15:17) Vital Signs/I&O 09/19/22 15:11 Temp 37.0 Pulse 97 Resp 20 B/P (MAP) 122/92 (102) Capillary Refill : Departure Impression Primary Impression: Bronchitis Disposition: 01 HOME, SELF-CARE Condition: Stable Departure-Patient Inst. Referrals: NO,LOCAL PHYSICIAN (PCP/Family) Primary Care Physician Patient Instructions: Cough, Adult (DC) Add. Discharge Instructions: Use Tessalon Perles as needed for cough. Increase your fluids at home, rest as needed however it might be more helpful to get up slowly you have to urinate once as this may help you more quickly. Return to the emergency department for any severe concerns. You will be treated for antibiotics if your symptoms last 14 days or more. I recommend you follow-up with your primary doctor should youstill have symptoms at that time. All discharge instructions reviewed with patient and/or family. Voiced understanding. Scripts Benzonatate (TESSALON PERLES) 100 Mg Capsule 100 MG PO QID for Cough for 5 Days, #20 CAP Prov: SEPIDEH TAVAREZ DO 09/19/22 SEPIDEH TAVAREZ DO Sep 19, 2022 15:20
[2022-09-19] MEDS ORDERED: BENZ100C18 PO (15:45)
[2022-09-19 15:50] VITALS: BP 139/49
--- NOTE | 2022-09-19 15:57 | Diagnostic Imaging Report ---
INDICATION: Cough and chest pain. TIME OF EXAM: 3:45 p.m. COMPARISON: Correlation is made with prior chest from 12/04/2021. FINDINGS: Heart size is normal. Lungs are clear. No infiltrates are seen. There is no effusion or pneumothorax. Postoperative changes to the lower cervical spine are noted. IMPRESSION: No acute cardiopulmonary process is detected. Dictated by: Dictated on workstation # [id number]
== END 2022-09-19 15:55 | disposition home or self-care (01) ==
LOC: EDUNIT# 15:08 → ER 15:09
DX: J40 Bronchitis, not specified as acute or chronic (principal); E11.9 Type 2 diabetes mellitus without complications; Z28.310 Unvaccinated for COVID-19; Z79.899 Other long term (current) drug therapy
CPT/HCPCS: 71046

== ENCOUNTER 2022-12-09 12:04 | Emergency (ER) | payer OTHER ==
[~2022-12-09] VITALS: Ht 177.8 cm; Wt 113.4 kg
[~2022-12-09 12:04] MED LIST changes: +BENZ100C18 PO
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
[2022-12-09] MEDS ORDERED: ACHD5005 PO (13:25)
[2022-12-09 13:27] VITALS: BP 115/79
== END 2022-12-09 13:27 | disposition home or self-care (01) ==
LOC: EDUNIT# 12:04 → ER 12:06
DX: S13.9XXA Sprain of joints and ligaments of unspecified parts of neck, initial encounter (principal); M54.6 Pain in thoracic spine; F17.290 Nicotine dependence, other tobacco product, uncomplicated; Z28.310 Unvaccinated for COVID-19; V89.2XXA Person injured in unspecified motor-vehicle accident, traffic, initial encounter; Y92.410 Unspecified street and highway as the place of occurrence of the external cause
CPT/HCPCS: 72125; 72128

== ENCOUNTER → 2023-04-28 | Outpatient (CLI) | payer OTHER ==
[~2023-04-28] MED LIST changes: +ACHD5005 PO; -GABA-490 PO; +GABA-491 PO
--- NOTE | 2023-04-28 18:19 | Diagnostic Imaging Report ---
EXAMINATION: Cervical spine radiograph EXAM DATE: 04/28/2023 11:41 AM COMPARISON: 12/09/2022. HISTORY: Neck pain and radiculopathy. TECHNIQUE: Five views FINDINGS: There is no acute fracture, dislocation, or destructive osseous process. Surgical changes from C4 through C7 spinal fusion. Otherwise, normal alignment. Disc spacers from C4 through C7. Disc heights are otherwise preserved. No significant facet hypertrophy is seen. The soft tissues are normal. There may be mild narrowing of the C4-C5 and C5-C6 neural foramina bilaterally. IMPRESSION: 1. Degenerative and surgical changes of the cervical spine without acute osseous abnormality. 2. Mild narrowing of the C4-C5 and C5-C6 neural foramina bilaterally. Dictated by: Dictated on workstation # [id number]
== END ==
LOC: RAD 11:13
PROVIDERS: ATTEND Family Medicine
DX: M47.24 Other spondylosis with radiculopathy, thoracic region (principal); M48.02 Spinal stenosis, cervical region
CPT/HCPCS: 72050

== ENCOUNTER 2023-05-27 11:55 | Emergency (ER) | payer OTHER ==
[~2023-05-27] VITALS: Ht 177.8 cm; Wt 102.5 kg
[2023-05-27] MEDS ORDERED: NS IV 1000 ML 1,000 ML IV STA (12:13)
[2023-05-27] MEDS ORDERED: ONDANSETRON INJECTION 4 MG/2 ML (SDV) IVP ONE (12:15)
[2023-05-27] MEDS ORDERED: PANTOPRAZOLE INJECTION 40 MG VIAL IV ONE (12:15)
[2023-05-27 12:18] LABS: BASOPHILS # (AUTO) 0.1 10^3/uL (0.0-0.1); BASOPHILS % (AUTO) 1 % (0-10); EOSINOPHILS # (AUTO) 0.1 10^3/uL (0.0-0.3); EOSINOPHILS % (AUTO) 1 % (0-10); HEMATOCRIT 43 % (40-54); HEMOGLOBIN 14.9 g/dL (13.3-17.7); LYMPHOCYTES # (AUTO) 1.7 10^3/uL (1.0-4.0); LYMPHOCYTES % (AUTO) 30 % (12-44); MEAN CORPUSCULAR HEMOGLOBIN 30 pg (25-34); MEAN CORPUSCULAR HGB CONC 34 g/dL (32-36); MEAN CORPUSCULAR VOLUME 88 fL (80-99); MEAN PLATELET VOLUME 8.9 fL (9.0-12.2); MONOCYTES # (AUTO) 0.5 10^3/uL (0.0-1.0); MONOCYTES % (AUTO) 9 % (0-12); NEUTROPHILS # (AUTO) 3.4 10^3/uL (1.8-7.8); NEUTROPHILS % (AUTO) 59 % (42-75); PLATELET COUNT 231 10^3/uL (130-400); WHITE BLOOD COUNT 5.8 10^3/uL (4.3-11.0)
--- NOTE | 2023-05-27 12:25 | ED Abdominal Pain ---
General Chief Complaint: Abdominal/GI Problems Stated Complaint: VOMITING | DEHYDRATION | NAUSEA Nursing Triage Note: PT AMB TO [facility] 6 WITH CC OF N/V, LUNDY, COUGH, AND DARK URINE X3 WEEKS. PT STATES THAT HE IS DEHYDRATED AND HAS LOST 30LBS IN 3 WEEKS. [facility]. Source of Information: Patient Exam Limitations: No Limitations History of Present Illness Date Seen by Provider: May 27, 2023 Time Seen by Provider: 12:22 Initial Comments Patient is a 52-year-old male who presents ED for vomiting and weight loss. He states he has been vomiting over the past 3 weeks. He reports at least 5-6 episodes daily. States he has been attempting to drink water. He states he has had dark urine but is producing urine. Feels bloated abdominal discomfort and hunger pains. States he did get sick about 3 weeks ago with a cough runny nose but states his symptoms improved. He does report a mild cough but that seems to be improving. Denies of any diarrhea. No recent antibiotic use or travels. No specific abdominal pain at this time. Reports losing around 30 pounds over the past 3 weeks. States he feels dehydrated. Denies of any chest pain, shortness of breath, headache, visual changes, sore throat, ear pain, pain with urination, neck pain, history of cancer, coronary artery disease. History of diabetes. Allergies and Home Medications Allergies Coded Allergies: Penicillins (Verified Allergy, Unknown, Anaphylaxis, 09/21/20) Patient Home Medication List Home Medication List Reviewed: Yes Benzonatate (Tessalon Perles) 100 Mg Capsule, 100 MG PO QID Prescribed by: SEPIDEH TAVAREZ MD on 09/19/22 1545 Duloxetine HCl (Duloxetine HCl) 60 Mg Capsule.dr, 60 MG PO DAILY, (Reported) Entered as Reported by: SANTIAGO FRAZIER on 05/01/22 1104 Gabapentin (Gabapentin) 400 Mg Capsule, 300 MG PO TID, (Reported) Entered as Reported by: SANTIAGO FRAZIER on 05/01/22 1104 Hydrocodone/Acetaminophen (Hydrocodone-Acetamin 5-325 mg) 5 Mg-325 Mg Tablet, 1 TAB PO Q4H PRN for PAIN-MODERATE (5-7) Prescribed by: JOSE ALEJANDRO COHEN on 12/09/22 1326 Insulin Glargine,Hum.rec.anlog (Lantus) 100 Unit/Ml Vial, 10 UNIT SQ DAILY, (Reported) Entered as Reported by: SANTIAGO FRAZIER on 05/01/22 110 Metformin HCl (Metformin HCl) 500 Mg Tablet, 500 MG PO BID, (Reported) Entered as Reported by: SANTIAGO FRAZIER on 05/01/22 110 Pantoprazole Sodium (Protonix) 40 Mg Tablet.dr, 40 MG PO DAILY Prescribed by: NAOMY DOYLE on 05/14/22 0834 Pantoprazole Sodium (Protonix) 40 Mg Tablet.dr, 40 MG PO DAILY Prescribed by: JOSE ALEJANDRO COHEN on 05/27/23 1354 Prochlorperazine Maleate (Compazine) 10 Mg Tablet, 10 MG PO Q6H Prescribed by: JOSE ALEJANDRO COHEN on 05/27/23 1354 Simvastatin (Simvastatin) 80 Mg Tablet, 80 MG PO DAILY, (Reported) Entered as Reported by: SANTIAGO FRAZIER on 05/01/22 110 Sucralfate (Carafate) 1 Gram Tablet, 1 GM PO QID Prescribed by: NAOMY DOYLE on 05/14/22 0834 Trazodone HCl (Trazodone HCl) 50 Mg Tablet, 50 MG PO DAILY, (Reported) Entered as Reported by: SANTIAGO FRAZIER on 05/01/22 110 Review of Systems Review of Systems Constitutional: No chills, No diaphoresis, No fever; malaise, weakness EENTM: No Blurred Vision, No Double Vision, No Eye Pain Respiratory: Cough; Denies Orthopnea Cardiovascular: Denies Chest Pain Gastrointestinal: Abdominal Pain; Denies Diarrhea; Nausea, Vomiting Genitourinary: Denies Burning, Denies Discharge, Denies Drainage, Denies Frequency; Other (dark urine) Musculoskeletal: No back pain, No joint pain Skin: No change in color, No change in hair/nails All Other Systems Reviewed Negative Unless Noted: Yes Past Btsbsdg-Ibdekt-Rhnmuu Hx Patient Social History Tobacco Use?: No Substance use?: Yes Substance type: Marijuana Alcohol Use?: No Immunizations Up To Date Tetanus Booster (TDap): Unknown First/Initial COVID19 Vaccinat: unvaccinated Second COVID19 Vaccination Krunal: unvaccinated Third COVID19 Vaccination Date: unvaccinated Seasonal Allergies Seasonal Allergies: No Past Medical History Surgery/Hospitalization HX: DM Type II, Neuropathy, Depression, Cervical spine fused 4 levels, R shoulder surgery, R knee arthroscopy x2, Umbilical hernia, Hepatitis vs Fatty Liver? Surgeries: Yes (neck fusion, R biceps repair, umb hernia) Respiratory: No Cardiac: No Neurological: Yes (vitamin d deficiency) Neuropathy Genitourinary: No Gastrointestinal: Yes (incisional hernia, ) Musculoskeletal: Yes Degenerate Disk Disease Endocrine: Yes Diabetes, Non-Insulin dep HEENT: No Cancer: No Psychosocial: No Integumentary: No Blood Disorders: No Family Medical History No Pertinent Family Hx Physical Exam Vital Signs Vital Signs - First Documented 05/27/23 12:00 Temp 36.8 Pulse 98 B/P (MAP) 150/88 (108) Pulse Ox 97 O2 Delivery Room Air Capillary Refill : Height/Weight/BMI Height: '" Weight: lbs. oz. kg; 32.00 BMI Method: General Appearance: WD/WN, no apparent distress HEENT: PERRL/EOMI, normal ENT inspection, TMs normal, pharynx normal Neck: non-tender, full range of motion, supple Respiratory: chest non-tender, lungs clear, normal breath sounds, no respiratory distress, no accessory muscle use Cardiovascular: regular rate, rhythm, no edema, no gallop, no JVD Gastrointestinal: normal bowel sounds, non tender, soft, no organomegaly Extremities: normal range of motion, non-tender, normal inspection, no pedal edema Back: normal inspection, no CVA tenderness Neurologic/Psychiatric: clinic director II-XII nml as tested, no motor/sensory deficits, alert, normal mood/affect, oriented x 3 Skin: normal color, warm/dry Lymphatic: no adenopathy Progress/Results/Core Measures Results/Orders Lab Results Laboratory Tests Test 05/27/23 12:03 05/27/23 12:10 05/27/23 12:17 05/27/23 12:22 Range/Units Glucometer 108 70-110 MG/DL White Blood Count 5.8 4.3-11.0 10^3/uL Red Blood Count 4.92 4.30-5.52 10^6/uL Hemoglobin 14.9 13.3-17.7 g/dL Hematocrit 43 40-54 % Mean Corpuscular Volume 88 80-99 fL Mean Corpuscular Hemoglobin 30 25-34 pg Mean Corpuscular Hemoglobin Concent 34 32-36 g/dL Red Cell Distribution Width 12.2 10.0-14.5 % Platelet Count 231 130-400 10^3/uL Mean Platelet Volume 8.9 L 9.0-12.2 fL Immature Granulocyte % (Auto) 0 % Neutrophils (%) (Auto) 59 42-75 % Lymphocytes (%) (Auto) 30 12-44 % Monocytes (%) (Auto) 9 0-12 % Eosinophils (%) (Auto) 1 0-10 % Basophils (%) (Auto) 1 0-10 % Neutrophils # (Auto) 3.4 1.8-7.8 10^3/uL Lymphocytes # (Auto) 1.7 1.0-4.0 10^3/uL Monocytes # (Auto) 0.5 0.0-1.0 10^3/uL Eosinophils # (Auto) 0.1 0.0-0.3 10^3/uL Basophils # (Auto) 0.1 0.0-0.1 10^3/uL Immature Granulocyte # (Auto) 0.0 0.0-0.1 10^3/uL Neutrophils % (Manual) 55 % Lymphocytes % (Manual) 30 % Monocytes % (Manual) 12 % Eosinophils % (Manual) 0 % Basophils % (Manual) 0 % Band Neutrophils 0 % Reactive Lymphocytes 3 % Blood Morphology Comment NORMAL Sodium Level 138 135-145 MMOL/L Potassium Level 4.1 3.6-5.0 MMOL/L Chloride Level 108 H 98-107 MMOL/L Carbon Dioxide Level 24 21-32 MMOL/L Anion Gap 6 5-14 MMOL/L Blood Urea Nitrogen 14 7-18 MG/DL Creatinine 0.98 0.60-1.30 MG/DL Estimat Glomerular Filtration Rate 92 BUN/Creatinine Ratio 14 Glucose Level 110 H 70-105 MG/DL Calcium Level 9.8 8.5-10.1 MG/DL Corrected Calcium 9.6 8.5-10.1 MG/DL Magnesium Level 1.7 1.6-2.4 MG/DL Total Bilirubin 0.6 0.1-1.0 MG/DL Aspartate Amino Transf (AST/SGOT) 14 5-34 U/L Alanine Aminotransferase (ALT/SGPT) 16 0-55 U/L Alkaline Phosphatase 70 40-136 U/L Total Protein 6.9 6.4-8.2 GM/DL Albumin 4.3 3.2-4.5 GM/DL Lipase 53 8-78 U/L Urine Color YELLOW Urine Clarity SLIGHTLY CLOUDY Urine pH 7.0 5-9 Urine Specific [place] 1.025 H 1.016-1.022 Urine Protein TRACE H NEGATIVE Urine Glucose (UA) NEGATIVE NEGATIVE Urine Ketones 1+ H NEGATIVE Urine Nitrite NEGATIVE NEGATIVE Urine Bilirubin NEGATIVE NEGATIVE Urine Urobilinogen 0.2 < = 1.0 MG/DL Urine Leukocyte Esterase NEGATIVE NEGATIVE Urine RBC (Auto) NEGATIVE NEGATIVE Urine RBC NONE /HPF Urine WBC NONE /HPF Urine Squamous Epithelial Cells 2-5 /HPF Urine Crystals NONE /LPF Urine Bacteria NEGATIVE /HPF Urine Casts NONE /LPF Urine Mucus MODERATE H /LPF Urine Culture Indicated NO Influenza Type A (RT-PCR) Not Detected Not Detecte Influenza Type B (RT-PCR) Not Detected Not Detecte SARS-CoV-2 RNA (RT-PCR) Not Detected Not Detecte My Orders Orders - PEE STYLES PA Ua Culture If Indicated (05/27/23 12:13) Cbc And Manual Diff (05/27/23 12:13) Comprehensive Metabolic Panel (05/27/23 12:13) Lipase (05/27/23 12:13) Ns Iv 1000 Ml (Ns Iv 1000 Ml) (05/27/23 12:13) Ondansetron Injection (Ondansetron Inj (05/27/23 12:15) Pantoprazole Injection (Pantoprazole Inj (05/27/23 12:15) Magnesium (05/27/23 12:18) Covid 19 Inhouse Test (05/27/23 12:18) Influenza A And B By Pcr (05/27/23 12:18) Chest 1 View, Ap/Pa Only (05/27/23 12:18) Ct Abdomen/Pelvis W (05/27/23 12:18) Received Contrast (Hold Metformin- Contr (05/27/23 12:45) Ns (Ivpb) 100 Ml (Sodium Chloride 0.9% 1 (05/27/23 12:45) Iohexol Injection (Omnipaque 350 Mg/Ml 1 (05/27/23 12:45) Lamotrigine Level (05/27/23 13:55) Medications Given in ED Current Medications Medications Dose Ordered Sig/[place] Route Start Time Stop Time Status Last Admin Dose Admin Iohexol 100 ml ONCE ONCE IV 05/27/23 12:45 05/27/23 12:46 DC 05/27/23 12:48 80 ML Ondansetron HCl 4 mg ONCE ONCE IVP 05/27/23 12:15 05/27/23 12:16 DC 05/27/23 12:22 4 MG Pantoprazole 40 mg ONCE ONCE IV 05/27/23 12:15 05/27/23 12:16 DC 05/27/23 12:22 40 MG Sodium Chloride 100 ml ONCE ONCE IV 05/27/23 12:45 05/27/23 12:46 DC 05/27/23 12:48 80 ML Vital Signs/I&O 05/27/23 05/27/23 12:00 14:00 Temp 36.8 Pulse 98 B/P (MAP) 150/88 (108) 133/79 Pulse Ox 97 O2 Delivery Room Air 2 Blood Pressure Mean: 108 FSBG Bedside Testing Finger Stick Blood Glucose: 108 Departure Communication (PCP) Patient is a 52-year-old male with a history of bipolar who presents ED with abdominal discomfort vomiting over the past 3 weeks. 5-6 episodes daily. History of diabetes. Differential diagnosis, gastroparesis, gastritis, GERD, esophagitis, peptic ulcer, cholelithiasis, cholecystitis, pancreatitis he does report a increase of his lamotrigine around the same time the symptoms started. Added a blood level. Currently pending. Vital signs stable. CBC, CMP, lipase, urinalysis, COVID influenza CT abdomen pelvis. Does report a 30 pound weight loss since the vomiting. Does not appear to be overly dry. He has been urinating but does have dark urine. CBC was grossly unremarkable. Chemistry was grossly unremarkable. Protein ketones high specific gravity noted in his urine without evidence of infection. Did receive a liter of fluid. Patient is tolerating p.o. fluids. Did suggest a second liter but he did not want to proceed. Did obtain a CT abdomen pelvis which did not note any acute abnormality. Patient did receive Zofran for nausea. Continue remaining a symptomatic without vomiting. No specific pain or tenderness suggesting surgical abdomen at this time. Would suspect more pain with biliary colic or ulcer disease esspecially after eating. Other etiologies would be more gastroparesis, gastritis versus H. pylori. At this time suggest starting a antiemetic. Will start patient on Protonix. Recommend following up with general surgeon GI for further evaluation. Would likely benefit with an upper EGD for further evaluation and diagnosis. At this time recommend clear liquids. Avoid any carbonated beverages, spicy foods. If any worsening symptoms return back to ED for further evaluation. Impression Primary Impression: Abdominal pain Disposition: HOME, SELF-CARE Condition: Stable Departure-Patient Inst. Decision time for Depature: 13:51 Referrals: KATRIN SLOAN MD (PCP) Primary Care Physician AMA MORENO MD Patient Instructions: Abdominal Pain, Adult ED Add. Discharge Instructions: Recommend taper down to your lower dose of lamotrigine. Consider taking Reglan as needed. Recommend GI outpatient follow-up for further evaluation for the vomiting. Clear liquids until symptoms improve. If any worsening symptoms return back to ED. All discharge instructions reviewed with patient and/or family. Voiced understanding. Scripts Prochlorperazine Maleate (Compazine) 10 Mg Tablet 10 MG PO Q6H, #14 TAB Prov: PEE STYLES 05/27/23 Pantoprazole Sodium (Protonix) 40 Mg Tablet.dr 40 MG PO DAILY, #20 TAB Prov: PEE STYLES 05/27/23 PEE STYLES May 27, 2023 12:24
[2023-05-27 12:27] LABS: ALBUMIN 4.3 GM/DL (3.2-4.5)
[2023-05-27 12:28] LABS: POTASSIUM 4.1 MMOL/L (3.6-5.0)
[2023-05-27 12:29] LABS: CALCIUM 9.8 MG/DL (8.5-10.1)
[2023-05-27 12:30] LABS: TOTAL PROTEIN 6.9 GM/DL (6.4-8.2)
[2023-05-27 12:32] LABS: BILIRUBIN,TOTAL 0.6 MG/DL (0.1-1.0)
[2023-05-27 12:34] LABS: CREATININE SERUM 0.98 MG/DL (0.60-1.30)
[2023-05-27] MEDS ORDERED: IOHEXOL 350 MG/ML 100 ML (OMNIPAQUE 350) VIAL IV ONE (12:45)
[2023-05-27] MEDS ORDERED: NS 100 ML (IVPB) BAG IV ONE (12:45)
[2023-05-27] MEDS ORDERED: HOLD METFORMIN - RECEIVED CONTRAST 20 ML VIAL IV SCH (12:45)
--- NOTE | 2023-05-27 12:52 | Diagnostic Imaging Report ---
INDICATION: Cough. TECHNIQUE: A frontal chest was obtained at 12:24 PM. FINDINGS: The heart and mediastinal silhouette are normal in appearance. The lungs are clear. There is no pneumothorax or pleural fluid. IMPRESSION: Negative chest. Dictated by: Dictated on workstation # [id number]
--- NOTE | 2023-05-27 13:03 | Diagnostic Imaging Report ---
CT ABDOMEN/PELVIS W TECHNIQUE: Multiple contiguous axial images were obtained through the abdomen and pelvis after administration of intravenous contrast. All CT scans use one or more of the following dose optimizing techniques: automated exposure control, MA and/or KvP adjustment based on patient size and exam type or iterative reconstruction. INDICATION: Upper abdominal pain COMPARISON: 12/04/2021 FINDINGS: Lower chest: The lung bases are clear. No pericardial or pleural effusion. Peritoneum: No free intraperitoneal air or fluid. Liver and biliary system: The liver is normal. The gallbladder is contracted without radiopaque stones. No biliary duct dilatation. Spleen and Pancreas: Spleen is normal. The pancreas enhances normally without mass lesion or peripancreatic inflammatory changes. Adrenals: Normal. tract: The kidneys enhance normally without suspicious mass or obstruction. Urinary bladder is decompressed. Prostate is not enlarged. GI tract: Stomach is partially filled with fluid and air. No bowel obstruction. No pericolonic inflammatory changes. The appendix is normal. Vasculature and Lymph nodes: Normal caliber aorta. No abdominal or pelvic lymphadenopathy. Musculoskeletal: No concerning osseous lesion. IMPRESSION: No acute obstructive or inflammatory process. Dictated by: Dictated on workstation # [id number]
[2023-05-27 13:04] LABS: BACTERIA,URINE NEGATIVE /HPF; BILIRUBIN,URINE NEGATIVE (NEGATIVE); CLARITY,URINE SLIGHTLY CLOUDY; COLOR,URINE YELLOW; GLUCOSE, URINE (UA) NEGATIVE (NEGATIVE); KETONES,URINE 1+ (NEGATIVE); LEUKOCYTE ESTERASE ,URINE NEGATIVE (NEGATIVE); NITRITE,URINE NEGATIVE (NEGATIVE); PROTEIN,URINE TRACE (NEGATIVE)
[2023-05-27 13:12] LABS: BAND NEUTROPHILS 0 %; BASOPHILS % (MANUAL) 0 %; EOSINOPHILS % (MANUAL) 0 %; LYMPHOCYTES % (MANUAL) 30 %; MONOCYTES % (MANUAL) 12 %; NEUTROPHILS % (MANUAL) 55 %; RBC MORPH NORMAL; REACTIVE LYMPHOCYTES 3 %
[2023-05-27] MEDS ORDERED: PANT40TA2 PO (13:54)
[2023-05-27] MEDS ORDERED: PROC-1 PO (13:54)
[2023-05-27 14:00] VITALS: BP 133/79
== END 2023-05-27 14:00 | disposition home or self-care (01) ==
LOC: EDUNIT# 11:55 → ER 11:56
DX: R10.9 Unspecified abdominal pain (principal); R11.2 Nausea with vomiting, unspecified
CPT/HCPCS: 36415; 71045; 74177; 80053; 80175; 81000; 82947; 83690; 83735; 85007; 85027; 87636